=== PATIENT | female | born 1960 | race Caucasian/White ===

== ENCOUNTER 2017-05-14 17:53 | Emergency (ER) | payer BC, OTHER ==
[~2017-05-14] VITALS: Ht 167.6 cm; Wt 81.6 kg
[2017-05-14] MEDS ORDERED: ALLEGRA ALLERGY60 MG (18:13)
[2017-05-14] MEDS ORDERED: CIPRO500 MG PO (19:02)
== END 2017-05-14 20:05 | disposition home or self-care (01) ==
LOC: ER 17:53
DX: N39.0 Urinary tract infection, site not specified (principal); B96.20 Unspecified Escherichia coli [E. coli] as the cause of diseases classified elsewhere

== ENCOUNTER 2018-01-07 16:47 | Emergency (ER) | payer OTHER ==
[~2018-01-07] VITALS: Ht 167.6 cm; Wt 81.6 kg
[~2018-01-07 16:47] MED LIST: ALLEGRA ALLERGY60 MG; CIPRO500 MG PO
== END 2018-01-07 19:11 | disposition home or self-care (01) ==
LOC: ER 16:47
DX: B37.3 Candidiasis of vulva and vagina (principal)

== ENCOUNTER → 2020-02-23 | Emergency (ER) | payer BC, OTHER ==
[~2020-02-23] VITALS: Ht 167.6 cm; Wt 86.2 kg
== END | disposition home or self-care (01) ==
LOC: ER 19:04
DX: N39.0 Urinary tract infection, site not specified (principal); Z03.818 Encounter for observation for suspected exposure to other biological agents ruled out

== ENCOUNTER 2020-06-28 08:24 | Emergency (ER) | payer BC, OTHER ==
[~2020-06-28] VITALS: Ht 167.6 cm; Wt 86.2 kg
[2020-06-28] MEDS ORDERED: VITAMIN D310 MC4 (08:37)
== END 2020-06-28 11:43 | disposition home or self-care (01) ==
LOC: ER 08:24
DX: N39.0 Urinary tract infection, site not specified (principal); B96.89 Other specified bacterial agents as the cause of diseases classified elsewhere

== ENCOUNTER 2023-03-23 10:49 | Emergency (ER) | payer BC, OTHER ==
[~2023-03-23] VITALS: Ht 167.6 cm; Wt 84.4 kg
[~2023-03-23 10:49] MED LIST changes: +VITAMIN D310 MC4
[2023-03-23] MEDS ORDERED: CRESTOR10 MG PO (12:34)
== END 2023-03-23 15:12 | disposition home or self-care (01) ==
LOC: ER 10:49
DX: M54.31 Sciatica, right side (principal)

== ENCOUNTER 2023-07-06 06:05 | Emergency (ER) | payer BC, OTHER ==
[~2023-07-06] VITALS: Ht 167.6 cm; Wt 83.9 kg
[~2023-07-06 06:05] MED LIST changes: +CRESTOR10 MG PO
[2023-07-06] MEDS ORDERED: GUAIFENESIN/DEXTROMETHORPHAN 100 MG/5 ML ML PO ONE (08:30)
[2023-07-06] MEDS ORDERED: TRIAMCINOLONE ACETONIDE 40 MG/ML VIAL IM ONE (08:30)
[2023-07-06] MEDS ORDERED: CETIRIZINE HCL 5 MG/5 ML ML PO ONE (08:30)
[2023-07-06] MEDS ORDERED: TUSNEL LIQUID178 ML PO (09:38)
[2023-07-06] MEDS ORDERED: OSEL75CA PO (09:38)
== END 2023-07-06 11:24 | disposition home or self-care (01) ==
LOC: ER 06:05
DX: J10.1 Influenza due to other identified influenza virus with other respiratory manifestations (principal); R53.81 Other malaise